=== PATIENT | female | born 1960 | race Caucasian/White ===

== ENCOUNTER → 2017-12-24 | Outpatient (CLI) | payer OTHER ==
[~2017-12-24] MED LIST: ADULT LOW DOSE81 MG PO; ALBUTEROL INH INH; FAMCYCLOVIR 50500 M1 PO; FAMOTIDINE20 MG PO; FISH OIL 1,001000 M1 PO; FLEXERIL PO; FLORINEF ACETA0.1 MG PO; FLUOXETINE HCL10 M1 PO; GABAPENTIN100 MG PO; HYDROCODON-ACE1 EAC7 PO; LEVAQUIN 500 M500 M2 PO; NEURONTIN 300300 M1 PO; NORVIR100 MG PO; OXYCODONE-ACET1 EACH PO; PERCOCET 5-3251 EACH PO; PRAVACHOL40 MG PO; PRENATAL COMPL1 EACH PO; PREZISTA600 MG PO; PROZAC 10 MG CA10 MG PO; RESTASIS1 EACH GTT; SELENIUM200 MC1 PO; SINGULAIR 10 MG10 M1 PO; SPIRONOLACTONE25 M1 PO; SYMBICORT160 MCG/4. INH; TRUVADA 200 MG1 EACH PO; VITAMIN D1000 UNI1 PO; VOLTAREN GEL 1100 G1 TOP; XANAX 0.25 MG0.25 MG PO; [UNRECOGNIZED DRUG - OTHER] PO; [UNRECOGNIZED DRUG - OTHER] PO
== END ==
LOC: RAD 11:51
DX: R05 Cough (principal)

== ENCOUNTER → 2021-07-14 | Outpatient (CLI) | payer MEDICARE, OTHER | LOC: RAD 08:02 | PROVIDERS: ATTEND Internal Medicine | DX: R06.00 Dyspnea, unspecified (principal) ==